=== PATIENT | female | born 1965 | race Hispanic/Latino ===

== ENCOUNTER 2016-12-16 06:16 | Day surgery (SDC) | payer OTHER ==
[2016-12-09 09:17] LABS: Basophils % (Auto) 0.8 % (0.0-1.8); Eosinophils % (Auto) 2.5 % (0.0-4.3); Hematocrit 37.7 % (30.3-42.9); Hemoglobin 11.8 gm/dl (10.1-14.3); Mean Corpuscular HGB Conc 31 % (30-34); Mean Corpuscular Volume 83 fl (79-97); Platelet Count 256 K/mm3 (140-440); Red Blood Count 4.55 M/mm3 (3.65-5.03); White Blood Count 5.2 K/mm3 (4.5-11.0)
--- NOTE | 2016-12-09 09:25 | Anesthesia Consultation ---
Anesthesia Consult and Med Hx Date of service: 12/09/16 - Airway Anesthetic Teeth Evaluation: Good ROM Head & Neck: Adequate Mental/Hyoid Distance: Adequate Mallampati Class: Class II Intubation Access Assessment: Probably Good - Pulmonary Exam CTA: Yes - Cardiac Exam Cardiac Exam: RRR - Pre-Operative Health Status ASA Pre-Surgery Classification: ASA3 Proposed Anesthetic Plan: General - Cardiovascular System Hx Hypertension: Yes - Central Nervous System Hx Psychiatric Problems: Yes (anxiety) - Endocrine Hx Non-Insulin Dependent Diabetes: Yes - Hematic Hx Anemia: Yes - Other Systems Hx Cancer: No - Additional Comments Anesthesia Medical History Comments: glaucoma
[2016-12-09 09:30] LABS: Mean Corpuscular Hemoglobin 26 pg (28-32); Red Cell Distribution Width 23.3 % (13.2-15.2)
[2016-12-09 09:44] LABS: Anion Gap 16 mmol/L; BUN/Creatinine Ratio 12.85; Blood Urea Nitrogen 9 mg/dL (7-17); Calcium 9.3 mg/dL (8.4-10.2); Carbon Dioxide 26 mmol/L (22-30); Chloride 102.6 mmol/L (98-107); Glucose 130 mg/dL (65-100); Potassium 4.2 mmol/L (3.6-5.0); Sodium 140 mmol/L (137-145)
[~2016-12-16 06:16] MED LIST: PEPCID PO NR; VERSED IV NR
[2016-12-16] MEDS ORDERED: NACL BACTERIOSTATIC INFILTRATI ONE (06:41)
[2016-12-16] MEDS ORDERED: DECADRON ONE (06:53)
[2016-12-16] MEDS ORDERED: DILAUDID ONE (06:53)
[2016-12-16] MEDS ORDERED: DIPRIVAN 10 MG/ML IV ONE (06:53)
[2016-12-16] MEDS ORDERED: ZOFRAN ONE (06:53)
[2016-12-16] MEDS ORDERED: XYLOCAINE MPF 2% ONE (06:53)
[2016-12-16] MEDS: NACL 0.9% 1000 ML 1,000 ML IV SCH ×2 (07:15→11:04)
[2016-12-16] MEDS ORDERED: SILVER NITRATE TP ONE (07:36)
--- NOTE | 2016-12-16 07:37 | Anesthesia Day of Surgery ---
Anesthesia Day of Surgery - Day of Surgery Patient Examined: Yes Patient H&P Reviewed: Yes Patient is NPO: Yes
--- NOTE | 2016-12-16 07:57 | Short Stay Summary ---
Short Stay Documentation Date of service: 12/16/16 Narrative H&P: Patient is a 51 year old who presents with irregular and heavy menses that have now caused severe anemia. Patient presents today for therapy to help slow cycles. PMH Hypertension. - History H&P: obtained from office Past Medical History: hypertension Past Surgical History: No surgical history Social history: - Allergies and Medications Current Medications: Allergies No Known Allergies Allergy (Unverified 12/07/16 10:56) Home Medications Medication Instructions Recorded Confirmed Last Taken Type ALPRAZolam [Xanax TAB] 1 mg PO TID PRN 12/07/16 12/16/16 12/13/16 History Lisinopril [Zestril] 5 mg PO QDAY 12/07/16 12/16/16 12/16/16 05:00 History Metoprolol [Lopressor] 12.5 mg PO QHS 12/07/16 12/16/16 12/15/16 21:00 History [place]-3 Fatty Acids/Fish Oil [Fish 3,000 mg PO DAILY 12/07/16 12/16/16 12/12/16 History Oil] Simvastatin [Zocor TAB] 20 mg PO QHS 12/07/16 12/16/16 12/13/16 History Zolpidem [Ambien] 10 mg PO QHS 12/07/16 12/16/16 12/13/16 History metFORMIN [Glucophage] 500 mg PO BID 12/07/16 12/16/16 12/02/16 History Ferrous Sulfate [Feosol] 325 mg PO QDAY 12/09/16 12/16/16 12/14/16 History Active Medications Famotidine (Pepcid) 20 mg PO PREOP NR Stop: 12/16/16 23:00 Last Admin: 12/16/16 07:15 Dose: 20 mg Hydromorphone HCl (Dilaudid) 0.5 mg IV Q10MIN PRN PRN Reason: Pain , Severe (7-10) Stop: 12/19/16 07:38 Sodium Chloride (Nacl 0.9% 1000 Ml) 1,000 mls @ 75 mls/hr IV DIRECT DAMIEN Last Admin: 12/16/16 07:15 Dose: 75 mls/hr Midazolam HCl (Versed) 2 mg IV PREOP NR Stop: 12/16/16 23:00 Last Admin: 12/16/16 07:20 Dose: 2 mg Ondansetron HCl (Zofran) 4 mg IV ONCE PRN PRN Reason: Nausea And Vomiting Stop: 12/16/16 07:38 - Physical exam General appearance: no acute distress Integumentary: no rash, no growths Lungs: Clear to auscultation, Normal air movement Breasts: deferred Heart: Regular rate, Normal S1, Normal S2 Gastrointestinal: normal, normoactive bowel sounds Female Genitourinary: normal Rectal Exam: deferred - Brief post op/procedure progress note Date of procedure: 12/16/16 Pre-op diagnosis: Menorrhagia, DUB Post-op diagnosis: same Procedure: Novasure Endometrial ablation with hysteroscopy Anesthesia: MAC Findings: thickened endometrial lining Surgeon: TABBY ELDER Estimated blood loss: minimal Pathology: list (endometrial curretings) Specimen disposition: to lab Condition: stable - Hospital course Hospital course: unremarkable - Disposition Condition at discharge: Good Disposition: DC-01 TO HOME OR SELFCARE Short Stay Discharge Plan Activity: advance as tolerated Weight Bearing Status: Weight Bear as Tolerated Diet: regular Special Instructions: other (nothing per vagina for 3 weeks) Follow up with: TABBY ELDER MD [Staff Physician] - 14 Days Prescriptions: HYDROcodone/APAP 7.5-325 [[place] 7.5/325] 1 each PO Q6HR PRN #20 tablet PRN Reason: Pain Ibuprofen [Motrin] 600 mg PO Q8H PRN #40 tablet PRN Reason: Pain
[2016-12-16] MEDS ORDERED: ZOFRAN IV PRN (09:00)
[2016-12-16] MEDS: DILAUDID IV PRN ×3 (09:05→11:22)
[2016-12-16] MEDS ORDERED: NACL 0.9% IR ONE (09:06)
[2016-12-16] MEDS ORDERED: TORADOL ONE (09:27)
[2016-12-16] MEDS ORDERED: TORADOL IV ONE (10:00)
--- NOTE | 2016-12-16 10:18 | Post Anesthesia Evaluation ---
- Post Anesthesia Evaluation Patient Participated: Yes Airway Patent: Yes Stable Respiratory Function: Yes Nausea/Vomiting: No Temp > 96.8F: Yes Pain Manageable: Yes Adequeate Hydration: Yes Anesthesia Complications: No Block Receding Appropriately: Not Applicable Patient on Ventilator: No
[2016-12-16] MEDS ORDERED: NORCO 7.5/325 PO PRN (10:30)
[2016-12-16] MEDS ORDERED: BENADRYL IV ONE (10:53)
[2016-12-16 13:38] VITALS: BP 110/78
--- NOTE | 2016-12-30 11:17 | Operative Report ---
Operative Report Operative Report: There is an operative report for patient Lizet Tesfaye Preoperative diagnosis: Perimenopausal menorrhagia Postoperative diagnosis: Same Procedure: NovaSure endometrial ablation Surgeon: Dr. Mayra Pacheco Anesthesia: MAC Complications: None Specimens: None EBL: Minimal Urine output: 150 mL clear Procedure: The patient was taken to the OR with IV running and in place. She was given adequate anesthesia without difficulty. She was placed in the dorsal lithotomy position. She was then prepped and draped in the normal sterile fashion. Attention was turned to the patient's vagina. Bladder was drained of approximately 150 mL of clear yellow urine. A speculum was placed in the patient's vagina. The cervix was visualized and grasped with a single-tooth tenaculum. The cervix was gently dilated up to approximately 10 mm. Following this the hysteroscope was introduced into the uterine cavity. There was no obvious pathology. NovaSure ablation was then performed according to nursing program director's instructions. The cycle lasted approximately 48 seconds. Once the ablation device was removed the hysteroscope was reintroduced. There appeared to be a good result with maximum amount of burn point all instruments removed from the patient's vagina. She was then awakened and taken to recovery in stable condition. The sponge and instrument counts were correct 2.
== END 2016-12-16 12:45 | disposition home or self-care (01) ==
LOC: OR 06:16
PROVIDERS: ATTEND Obstetrics & Gynecology
DX: N85.01 Benign endometrial hyperplasia (principal); I10 Essential (primary) hypertension; D64.9 Anemia, unspecified; F41.9 Anxiety disorder, unspecified; E11.39 Type 2 diabetes mellitus with other diabetic ophthalmic complication; H40.9 Unspecified glaucoma; Z79.899 Other long term (current) drug therapy
CPT/HCPCS: 36415; 58563; 80048; 81025; 82962; 85025; 88305; A4217; J1100; J1170; J1200; J1885; J2250; J2405; J2704; J7030